=== PATIENT | male | born 1990 | race Caucasian/White ===

== ENCOUNTER 2020-02-21 14:01 | Outpatient (CLI) | payer OTHER ==
--- NOTE | 2020-02-21 16:41 | XRAY Report ---
PROCEDURE: Thoracic Spine 2 View INDICATIONS: THORACIC BACK PAIN, BACK PAIN LUMBAR TECHNIQUE: 3 views of the thoracic spine were acquired. COMPARISON: None. FINDINGS: Bones: No fractures or dislocations. No suspicious bony lesions. 12 pairs of ribs are noted, and a ppear intact where visualized. Soft tissues: No paravertebral stripe thickening. IMPRESSION: No acute osseous abnormality. Reviewed by: Jyoti Toney MD on 02/21/2020 4:40 PM PST Approved by: Jyoti Toney MD on 02/21/2020 4:40 PM PST Station ID: [id number]
--- NOTE | 2020-02-21 16:42 | XRAY Report ---
PROCEDURE: Lumbar Spine 2 View INDICATIONS: THORACIC BACK PAIN, BACK PAIN LUMBAR TECHNIQUE: 2 views of the lumbar spine were acquired. COMPARISON: None. FINDINGS: Bones: 5 [id number] vertebrae are present. There is trace retrolisthesis of L2 on L3, L3 on L4 . Moderate disc and foraminal narrowing is noted at L5-S1, mild foraminal narrowing is noted at L4-5. No vertebral body compression fractures. No suspicious bony lesions. Soft tissues: Overlying bowel gas pattern is normal. No suspicious soft tissue calcifications. IMPRESSION: Disc and foraminal narrowing is noted at L4-5 and L5-S1. Reviewed by: Jyoti Toney MD on 02/21/2020 4:41 PM PST Approved by: Jyoti Toney MD on 02/21/2020 4:41 PM PST Station ID: [id number]
== END 2020-02-21 14:02 | disposition home or self-care (01) ==
LOC: DI 14:01
PROVIDERS: ATTEND Physician Assistant
DX: M48.07 Spinal stenosis, lumbosacral region (principal); M54.6 Pain in thoracic spine
CPT/HCPCS: 72070; 72100